=== PATIENT | female | born 1960 | race Caucasian/White ===

== ENCOUNTER 2016-09-11 14:41 | Emergency (ER) | payer OTHER ==
[2016-09-11 14:48] VITALS: BP 141/96; PULSE 71; RESP 16; TEMP 98.2; O2SAT 98
--- NOTE | 2016-09-11 15:04 | EDPHY ---
H & P Time Seen by Provider: 09/11/16 14:55 HPI/ROS: CHIEF COMPLAINT: Right mandibular molar pain HISTORY OF PRESENT ILLNESS: 56-year-old male visiting from [place] complaining of 3 days of right mandibular molar pain. Atraumatic. No change in voice. No fever no chills. No trismus no drooling. Today is Monday. He is leaving tomorrow and is planning on seeing his dentist early this week PHYSICAL EXAM (Prior to examination, patient consented to physical exam, hands were washed and my usual and customary physical exam procedures followed) 1) GENERAL: Well-developed, well-nourished, alert and oriented. AppearsUncomfortable 2) HEAD: Normocephalic 3) HEENT: sclera anicteric. No trismus no drooling. Tender to percussion tooth number 30. No evidence of apical abscess. Floor of mouth is soft with no induration, no evidence of Mendel's angina. Submental and submandibular spaces are soft. 4) LUNGS: Breathing comfortably. 5) SKIN: no lesions Smoking Status: Never smoked Constitutional: Initial Vital Signs Temperature (C) 36.8 C 09/11/16 14:44 Heart Rate 71 09/11/16 14:44 Respiratory Rate 16 09/11/16 14:44 Blood Pressure 141/96 H 09/11/16 14:44 O2 Sat (%) 98 09/11/16 14:44 O2 Delivery Mode Room Air Allergies/Adverse Reactions: No Known Allergies Allergy (Unverified 09/11/16 14:43) Home Medications: Medication Instructions Recorded Amoxicillin Trihydrate 500 mg PO Q8 7 Days 09/11/16 [Amoxicillin 500mg cap] Crestor 09/11/16 Metoprolol Succinate 09/11/16 morphINE 09/11/16 oxyCODONE/APAP 5/325 [Percocet 1 tab PO Q6 #14 tab 09/11/16 5/325] MDM/Departure - MDM ED Course/Re-evaluation: Offered dental nerve block which patient declined. He is flying back to [place] tomorrow which point he will see his dentist. Doubt Mendel's angina. Doubt deep space infection. Doubt apical abscess. I do not think that imaging studies currently indicated - Depart Disposition: Home, Routine, Self-Care Clinical Impression: Atypical odontalgia Condition: Good Instructions: Toothache (ED) Additional Instructions: Return to the ER immediately if you cannot swallow, have drooling, fevers, neck stiffness, cannot open your jaw, or any other symptoms that concern you. Prescriptions: Amoxicillin Trihydrate [Amoxicillin 500mg cap] 500 mg PO Q8 7 Days oxyCODONE/APAP 5/325 [Percocet 5/325] 1 tab PO Q6 #14 tab Referrals: Follow-up, with your dentist in the next 1-3 days [Other] - As per Instructions
== END 2016-09-11 15:40 | disposition home or self-care (01) ==
DX: K08.89 Other specified disorders of teeth and supporting structures (principal)